=== PATIENT | female | born 1935 | race Caucasian/White ===

== ENCOUNTER 2018-07-14 13:55 | Inpatient (IN) | payer MEDICARE ==
[2018-07-14 14:41] LABS: ABSOLUTE EOSINOPHILS # (AUTO) 0.5 10^3/uL (0.0-0.6); ABSOLUTE LYMPHOCYTES (AUTO) 1.5 10^3/uL (0.5-4.7); ABSOLUTE MONOCYTES (AUTO) 0.6 10^3/uL (0.1-1.4); ABSOLUTE NEUT (AUTO) 7.8 10^3/uL (1.7-8.2); BASOPHILS % (AUTO) 0.4 % (0-2); EOSINOPHILS % (AUTO) 4.8 % (0-6); HEMATOCRIT 36.1 % (36.0-47.0); LYMPHOCYTES % (AUTO) 14.3 % (13-45); MEAN CORPUSCULAR HGB CONC 33.3 g/dL (32.0-36.0); MEAN CORPUSCULAR VOLUME 81 fl (80-97); MONOCYTES % (AUTO) 6.1 % (3-13); PLATELET COUNT 319 10^3/uL (150-450); RED BLOOD COUNT 4.46 10^6/uL (3.72-5.28); RED CELL DISTRIBUTION WIDTH 17.9 % (11.5-14.0); SEGMENTED NEUTROPHILS % (AUTO) 74.4 % (42-78); TOTAL CELLS COUNTED % (AUTO) 100 %; WHITE BLOOD COUNT 10.5 10^3/uL (4.0-10.5)
[2018-07-14 14:50] LABS: ALANINE AMINOTRANSFERASE 37 U/L (9-52); ALKALINE PHOSPHATASE 96 U/L (38-126); ASPARTATE AMINO TRANSFERASE 40 U/L (14-36); BILIRUBIN,DIRECT 0.2 mg/dL (0.0-0.4); BILIRUBIN,TOTAL 0.3 mg/dL (0.2-1.3); BLOOD UREA NITROGEN 7 mg/dL (7-20); CHLORIDE 92 mmol/L (98-107); GLUCOSE 117 mg/dL (75-110); SODIUM 139.7 mmol/L (137-145); TOTAL PROTEIN 6.2 g/dL (6.3-8.2)
[2018-07-14 14:57] LABS: ALCOHOL < 10 mg/dL (NONE DETECTED); ANION GAP 5 (5-19)
[2018-07-14 15:00] LABS: CALCIUM 13.4 mg/dL (8.4-10.2); POTASSIUM 2.1 mmol/L (3.6-5.0)
[2018-07-14 15:01] LABS: CARBON DIOXIDE 43 mmol/L (22-30)
[2018-07-14] MEDS ORDERED: NORMAL SALINE 1000 ML 1,000 ML IV ONE ×2 (15:31→19:50)
[2018-07-14 15:44] LABS: INTERNATIONAL RATION (INR) 0.95; PROTHROMBIN TIME 13.2 SEC (11.4-15.4)
[2018-07-14 15:45] LABS: PARTIAL THROMBOPLASTIN TIME 28.8 SEC (23.5-35.8)
[2018-07-14] MEDS ORDERED: MAGNESIUM SULFATE/D5W 1 GM/100 ML RTUPB IV ONE (15:55)
[2018-07-14 15:58] LABS: VENOUS BLOOD BASE EXCESS 18.8 mmol/L; VENOUS BLOOD HCO3 46.4 mmol/L (20-32); VENOUS BLOOD PH 7.45 (7.30-7.42)
[2018-07-14 16:00] LABS: VENOUS BLOOD PCO2 69.1 mmHg (35-63)
--- NOTE | 2018-07-14 17:21 | RADIOLOGY REPORT (SQ) ---
EXAM DESCRIPTION: CT HEAD WITHOUT COMPLETED DATE/TIME: 07/14/2018 5:06 pm REASON FOR STUDY: ams COMPARISON: None. TECHNIQUE: Axial images acquired through the brain without intravenous contrast. Images reviewed wi th bone, brain and subdural windows. Additional sagittal and coronal reconstructions were generated. Images stored on PACS. All CT scanners at this facility use dose modulation, iterative reconstruction, and/or weight based d osing when appropriate to reduce radiation dose to as low as reasonably achievable (ALARA). [facility]: Dose Right [facility]: CareDose [facility]: Dose Right [facility]: Teradose 4D [facility]: [place] S&T RADIATION DOSE: CT Rad equipment meets quality standard of care and radiation dose reduction techniq ues were employed. CTDIvol: 53.2 mGy. DLP: 964 mGy-cm.mGy. LIMITATIONS: None. FINDINGS: VENTRICLES: Prominent. CEREBRUM: No masses. No hemorrhage. No midline shift. Areas of low density in the white matter mos t likely due to chronic micro-vascular ischemic change. No evidence for acute infarction. CEREBELLUM: No masses. No hemorrhage. No alteration of density. No evidence for acute infarction. EXTRAAXIAL SPACES: Age-related involutional change. No fluid collections. No masses. ORBITS AND GLOBE: No intra- or extraconal masses. Normal contour of globe without masses. CALVARIUM: No fracture. PARANASAL SINUSES: Trace fluid left maxillary sinus. SOFT TISSUES: No mass or hematoma. OTHER: No other significant finding. IMPRESSION: CHRONIC CHANGES OF ATROPHY AND MICROVASCULAR ISCHEMIA. NO ACUTE PROCESS. EVIDENCE OF ACUTE STROKE: NO. TECHNICAL DOCUMENTATION: JOB ID: [id number] Quality ID # [id number]: Final reports with documentation of one or more dose reduction techniques (e.g., Au tomated exposure control, adjustment of the mA and/or kV according to patient size, use of iterative reconstruction technique) 2010 [employer]- All Rights Reserved Reading location - IP/workstation name: [email or web address]
--- NOTE | 2018-07-14 17:22 | RADIOLOGY REPORT (SQ) ---
EXAM DESCRIPTION: CT ABD/PELVIS WITH IV ONLY COMPLETED DATE/TIME: 07/14/2018 5:06 pm REASON FOR STUDY: pain COMPARISON: None. TECHNIQUE: CT scan of the abdomen and pelvis performed using helical scanning technique with dynamic intravenous contrast injection. No oral contrast. Images reviewed with lung, soft tissue, and bone windows. Reconstructed coronal and sagittal MPR images reviewed. Delayed images for evaluation of the urinary system also acquired. All images stored on PACS. All CT scanners at this facility use dose modulation, iterative reconstruction, and/or weight based d osing when appropriate to reduce radiation dose to as low as reasonably achievable (ALARA). [facility]: Dose Right [facility]: CareDose [facility]: Dose Right [facility]: Teradose 4D [facility]: [employer] CONTRAST TYPE AND DOSE: contrast/concentration: Isovue 350.00 mg/ml; Total Contrast Delivered: 79.0 ml; Total Saline Delivered: 38.0 ml RENAL FUNCTION: BUN 7 creatinine 0.6 RADIATION DOSE: CT Rad equipment meets quality standard of care and radiation dose reduction techniq ues were employed. CTDIvol: 9.6 - 14.4 mGy. DLP: 1266 mGy-cm.. LIMITATIONS: None. FINDINGS: LOWER CHEST: Mild left lower lobe bronchiectasis. LIVER: The liver is diffusely hypoattenuating. No masses. SPLEEN: Normal size. No focal lesions. PANCREAS: No masses. No significant calcifications. No adjacent inflammation or peripancreatic fluid collections. Pancreatic duct not dilated. GALLBLADDER: No identified stones by CT criteria. No inflammatory changes to suggest cholecystitis. ADRENAL GLANDS: No significant masses or asymmetry. RIGHT KIDNEY AND URETER: No solid masses. No significant calcifications. No hydronephrosis or hyd roureter. LEFT KIDNEY AND URETER: No solid masses. No significant calcifications. No hydronephrosis or hydr oureter. AORTA AND VESSELS: No aneurysm. No dissection. Renal arteries, SMA, celiac without stenosis. RETROPERITONEUM: No retroperitoneal adenopathy, hemorrhage or masses. BOWEL AND PERITONEAL CAVITY: Mild sigmoid diverticulosis. No acute inflammation. There is considera ble stool in the rectum. APPENDIX: Not identified. PELVIS: Urinary bladder is normal. There is a 4.5 cm right adnexal simple cyst. ABDOMINAL WALL: No masses. No hernias. BONES: Scoliosis. Degenerative disc changes. OTHER: No other significant finding. IMPRESSION: 1. Mild bronchiectasis in the left lower lobe. 2. Fatty infiltration of the liver. 3. Diverticulosis coli. 4. There is a 4.5 cm simple cyst in the right adnexa. Follow-up ultrasound is recommended. TECHNICAL DOCUMENTATION: JOB ID: [id number] Quality ID # [id number]: Final reports with documentation of one or more dose reduction techniques (e.g., Au tomated exposure control, adjustment of the mA and/or kV according to patient size, use of iterative reconstruction technique) 2010 [employer]- All Rights Reserved Reading location - IP/workstation name: [email or web address]
--- NOTE | 2018-07-14 17:22 | RADIOLOGY REPORT (SQ) ---
EXAM DESCRIPTION: CHEST SINGLE VIEW COMPLETED DATE/TIME: 07/14/2018 5:09 pm REASON FOR STUDY: ams COMPARISON: 09/12/2007 EXAM PARAMETERS: NUMBER OF VIEWS: One view. TECHNIQUE: Single frontal radiographic view of the chest acquired. RADIATION DOSE: NA LIMITATIONS: Positioning. FINDINGS: LUNGS AND PLEURA: No opacities, masses or pneumothorax. No pleural effusion. MEDIASTINUM AND HILAR STRUCTURES: Normal for technique. HEART AND VASCULAR STRUCTURES: Normal for technique. BONES: No acute findings. HARDWARE: None in the chest. OTHER: No other significant finding. IMPRESSION: NO ACUTE RADIOGRAPHIC FINDING IN THE CHEST. TECHNICAL DOCUMENTATION: JOB ID: [id number] [employer]- All Rights Reserved Reading location - IP/workstation name: [email or web address]
[2018-07-14 18:01] LABS: APPEARANCE,URINE CLOUDY; BILIRUBIN,URINE NEGATIVE (NEGATIVE); COLOR,URINE YELLOW; GLUCOSE, URINE NEGATIVE (NEGATIVE); KETONES,URINE NEGATIVE (NEGATIVE); LEUKOCYTE ESTERASE,URINE LARGE (NEGATIVE); NITRITE,URINE NEGATIVE (NEGATIVE); PROTEIN,URINE NEGATIVE (NEGATIVE); URINE SPECIFIC GRAVITY 1.043; UROBILINOGEN,URINE NEGATIVE mg/dL (<2.0)
[2018-07-14] MEDS ORDERED: CEFTRIAXONE 1 GM/D5W RTU 1 GM/50 ML RTUPB IV ONE (18:21)
[2018-07-14 18:28] LABS: URINE AMPHETAMINES SCREEN NEGATIVE; URINE BARBITURATES SCREEN NEGATIVE; URINE BENZODIAZEPINES SCREEN NEGATIVE; URINE COCAINE SCREEN NEGATIVE; URINE MARIJUANA (THC) SCREEN NEGATIVE; URINE METHADONE SCREEN NEGATIVE; URINE PHENCYCLIDINE SCREEN NEGATIVE
[2018-07-14] MEDS ORDERED: ACETAMINOPHEN 325 MG TABLET PO PRN (20:02)
[2018-07-14] MEDS ORDERED: MAG HYDROX/AL HYDROX/SIMETH SUSP 30 ML UDCUP PO PRN (20:02)
[2018-07-14] MEDS ORDERED: IPRATROPIUM/ALBUTEROL 0.5-2.5 MG/3 ML AMPUL NEB PRN (20:02)
--- NOTE | 2018-07-14 20:03 | ER Document Report ---
ED General - General Chief Complaint: Abdominal Pain Stated Complaint: ALTERED MENTAL STATUS Time Seen by Provider: 07/14/18 15:19 TRAVEL OUTSIDE OF THE [place] IN LAST 30 DAYS: No - HPI Patient complains to provider of: Abdominal pain altered mental status Notes: Upon entering patient examination patient is sitting by herself patient is monitoring the vital signs at this time. Patient upon palpating her belly states leave her alone otherwise patient does not answer any questions is not aware was going on her surroundings. According to the nursing staff patient was brought by EMS and family is at bedside. We are eventually able to contact family medical power of attorney at law stated the patient is a full code and then daughter the patient lives with daughter states intermittent L mental status is ongoing for the last week. States patient has history of bipolar schizophrenia is on aspirin and vitamin supplements. Denies any recent otherwise patient is alert and eat a soft diet Past Medical History - Social History Smoking Status: Unknown if Ever Smoked Family History: Reviewed & Not Pertinent Patient has suicidal ideation: No Patient has homicidal ideation: No Renal/ Medical History: Denies: Hx Peritoneal Dialysis Psychiatric Medical History: Reports: Hx Bipolar Disorder, Hx Schizophrenia Review of Systems - Review of Systems Notes: Altered mental status -: Yes ROS unobtainable due to patient's medical condition Physical Exam - Vital signs Vitals: Resp Pulse Ox 15 91 L 07/14/18 14:15 07/14/18 14:15 Interpretation: Normal - General General appearance: Appears well, Alert - HEENT Head: Normocephalic, Atraumatic Eyes: Normal Conjunctiva: Normal Pupils: PERRL - Respiratory Respiratory status: No respiratory distress Chest status: Nontender Breath sounds: Normal Chest palpation: Normal - Cardiovascular Rhythm: Regular Heart sounds: Normal auscultation Murmur: No - Abdominal Inspection: Normal Distension: No distension Bowel sounds: Normal Tenderness: Tender - Diffuse tenderness no guarding no rebound Organomegaly: No organomegaly - Back Back: Normal, Nontender - Extremities General upper extremity: Normal inspection, Nontender, Normal color, Normal ROM , Normal temperature General lower extremity: Normal inspection, Nontender, Normal color, Normal ROM , Normal temperature, Normal weight bearing. No: Panda's sign - Neurological Neuro grossly intact: Yes [place] Coma Scale Eye Opening: Spontaneous [place] Coma Scale Verbal: Confused Jose Coma Scale Motor: Localizes to Pain [place] Coma Scale Total: 13 Speech: Normal Motor strength normal: LUE, RUE, LLE, RLE Sensory: Normal - Psychological Associated symptoms: Confused - Skin Skin Temperature: Warm Skin Moisture: Dry Skin Color: Normal Course - Re-evaluation Re-evalutation: 07/14/18 21:42 Laboratory studies show a venous blood gas with hypercapnia however no signs of acidosis. Chemistry profile does show hypokalemia hypomagnesemia EKG does show any changes with this however is very difficult to obtain EKG as the patient continues to move. Patient urinalysis shows signs of urinary tract infection. Head CT chest x-ray and CT of abdomen pelvis did not show any other infectious etiology. Discussed with the hospital staff Dr. Kellogg will admit patient to telemetry for further evaluation and treatment - Vital Signs Vital signs: Temp Pulse Resp BP Pulse Ox 12 145/86 H 93 07/14/18 20:01 07/14/18 20:00 07/14/18 20:01 - Laboratory Result Diagrams: 07/14/18 14:20 07/14/18 14:20 Laboratory results interpreted by me: 07/14/18 07/14/18 07/14/18 14:20 14:20 14:20 RDW 17.9 H VBG pH VBG pCO2 VBG HCO3 Potassium 2.1 L* Chloride 92 L Carbon Dioxide 43 H* Glucose 117 H Lactic Acid 3.0 H Calcium 13.4 H* Magnesium 1.5 L AST 40 H Total Protein 6.2 L Albumin 3.0 L Urine Blood Ur Leukocyte Esterase 07/14/18 07/14/18 07/14/18 14:20 15:46 17:32 RDW VBG pH 7.45 H VBG pCO2 69.1 H* VBG HCO3 46.4 H Potassium Chloride Carbon Dioxide Glucose Lactic Acid Calcium Magnesium 1.4 L AST Total Protein Albumin Urine Blood SMALL H Ur Leukocyte Esterase LARGE H Discharge - Discharge Clinical Impression: Hypomagnesemia, Hypokalemia Altered mental state Qualifiers: Altered mental status type: unspecified Qualified Code(s): R41.82 - Altered mental status, unspecified UTI (urinary tract infection) Qualifiers: Urinary tract infection type: acute cystitis Hematuria presence: without hematuria Qualified Code(s): N30.00 - Acute cystitis without hematuria Condition: Good Disposition: ADMITTED INPATIENT Admitting Provider: Tristan Kellogg Unit Admitted: Telemetry
[2018-07-14] MEDS ORDERED: POTASSI CL 20 MEQ/D5-1/2NS 1L 1,000 ML IV PRN (20:15)
[2018-07-14] MEDS ORDERED: CEFTRIAXONE INJ 1000 MG VIAL ONE (20:34)
[2018-07-14] MEDS ORDERED: RISPERIDONE 0.25 MG TABLET PO SCH (21:00)
[2018-07-14] MEDS ORDERED: POTASSIUM CHLORIDE 20 MEQ/15 ML UDCUP PO ONE (22:15)
[2018-07-14] MEDS ORDERED: HEPARIN SOD (PORCINE) 5,000 UNIT/ML 1 ML SYRINGE SUBCUT ONE (22:15)
[2018-07-14] MEDS ORDERED: RISPERIDONE 0.25 MG TABLET PO ONE (23:00)
--- NOTE | 2018-07-14 23:06 | EKG REPORT ---
SEVERITY:- ABNORMAL ECG - PROBABLE SINUS RHYTHM, CAN NOT R/O A-FLUTTER/FIBRILLATION REC REPEAT EKG LEFT ANTERIOR FASCICULAR BLOCK PROBABLE LVH WITH SECONDARY REPOL ABNRM BORDERLINE PROLONGED QT INTERVAL : Confirmed by: Landon Long 14-Jul-2018 23:05:37
[2018-07-15] MEDS: POTASSI CL 20 MEQ/50 ML RIDER 20 MEQ/50 ML RTUPB IV SCH ×4 (00:19→08:55)
[2018-07-15] MEDS ORDERED: NA PHOS,M-B/NA PHOS,DI-BA (ADULT) 133 ML ENEMA PR ONE (03:15)
[2018-07-15] MEDS ORDERED: LACTULOSE SYRUP 20 GM/30 ML UDCUP PO ONE (03:15)
[2018-07-15 04:43] LABS: ABSOLUTE BASOPHILS # (AUTO) 0.1 10^3/uL (0.0-0.2); ABSOLUTE EOSINOPHILS # (AUTO) 0.6 10^3/uL (0.0-0.6); ABSOLUTE LYMPHOCYTES (AUTO) 1.5 10^3/uL (0.5-4.7); ABSOLUTE MONOCYTES (AUTO) 0.7 10^3/uL (0.1-1.4); BASOPHILS % (AUTO) 0.9 % (0-2); EOSINOPHILS % (AUTO) 4.8 % (0-6); HEMATOCRIT 33.5 % (36.0-47.0); HEMOGLOBIN 11.3 g/dL (12.0-15.5); LYMPHOCYTES % (AUTO) 12.9 % (13-45); MEAN CORPUSCULAR HEMOGLOBIN 27.3 pg (27.0-33.4); MEAN CORPUSCULAR HGB CONC 33.7 g/dL (32.0-36.0); MEAN CORPUSCULAR VOLUME 81 fl (80-97); PLATELET COUNT 292 10^3/uL (150-450); RED BLOOD COUNT 4.14 10^6/uL (3.72-5.28); SEGMENTED NEUTROPHILS % (AUTO) 75.4 % (42-78); TOTAL CELLS COUNTED % (AUTO) 100 %; WHITE BLOOD COUNT 11.9 10^3/uL (4.0-10.5)
[2018-07-15 05:11] LABS: ANION GAP 5 (5-19); BLOOD UREA NITROGEN 7 mg/dL (7-20); CARBON DIOXIDE 38 mmol/L (22-30); CHLORIDE 99 mmol/L (98-107); GLUCOSE 112 mg/dL (75-110); SODIUM 141.5 mmol/L (137-145)
[2018-07-15 05:24] LABS: CALCIUM 12.5 mg/dL (8.4-10.2); POTASSIUM 2.3 mmol/L (3.6-5.0)
[2018-07-15] MEDS: MAGNESIUM SULFATE/D5W 1 GM/100 ML RTUPB IV SCH ×2 (06:03→11:23)
[2018-07-15] MEDS: HEPARIN SOD (PORCINE) 5,000 UNIT/ML 1 ML SYRINGE SUBCUT SCH ×3 (06:04→22:24)
[2018-07-15] MEDS ORDERED: FUROSEMIDE INJ/PF 40 MG/4 ML SDV IV ONE (07:05)
--- NOTE | 2018-07-15 07:22 | PDOC H&P ---
History of Present Illness Admission Date/PCP: 07/14/18 20:24 WILBERT JUNIOR MD Patient complains of: Altered mental status History of Present Illness: DEMI MANNING is a 82 year old female with a past medical history of schizophrenia whose history is otherwise to obtain as she is a poor historian and family is unavailable. She is brought to the emergency room via EMS for altered mental status worsening over the last week. She is awake and alert but disoriented and intermittently tracking, verbal but incomprehensible. Her workup reveals profound hypokalemia, hypercalcemia and hypomagnesemia. CT head , chest x-ray and CT abdomen is unremarkable with exception to fecal impaction. She is referred to the hospitalist for admission Past Medical History Psychiatric Medical History: Reports: Bipolar Disorder, Schizoaffective Disorder Denies: Depression Social History Information Source: Patient, [facility] Lives with: Family Smoking Status: Unknown if Ever Smoked Frequency of Alcohol Use: None Hx Recreational Drug Use: No Drugs: None Hx Prescription Drug Abuse: No - Advance Directive Resuscitation Status: Full Code Family History Family History: Other - Unobtainable Parental Family History Reviewed: No - Unobtainable Children Family History Reviewed: No - Unobtainable Sibling(s) Family History Reviewed.: No - Unobtainable Review of Systems ROS unobtainable: Due to mental status - Encephalopathy Physical Exam Vital Signs: Temp Pulse Resp BP Pulse Ox 97.7 F 98 16 141/61 H 91 L 07/15/18 03:26 07/15/18 03:38 07/15/18 03:26 07/15/18 03:26 07/15/18 03:26 Intake & Output 07/13/18 07/14/18 07/15/18 11:59 11:59 11:59 Intake Total 150 Balance 150 Weight 63.7 kg General appearance: PRESENT: disheveled, mild distress. ABSENT: cooperative, hard of hearing Head exam: PRESENT: atraumatic, normocephalic Eye exam: PRESENT: conjunctiva pink, EOMI, PERRLA. ABSENT: scleral icterus Ear exam: PRESENT: normal external ear exam Mouth exam: PRESENT: moist, tongue midline Neck exam: ABSENT: carotid bruit, JVD, lymphadenopathy, thyromegaly Respiratory exam: PRESENT: clear to auscultation nagi. ABSENT: rales, rhonchi, wheezes Cardiovascular exam: PRESENT: RRR. ABSENT: diastolic murmur, rubs, systolic murmur Pulses: PRESENT: normal dorsalis pedis pul Vascular exam: PRESENT: normal capillary refill GI/Abdominal exam: PRESENT: distended, hypoactive bowel sounds, soft, tenderness. ABSENT: firm, guarding, hernia Rectal exam: PRESENT: deferred Extremities exam: PRESENT: full ROM. ABSENT: calf tenderness, clubbing, pedal edema Neurological exam: PRESENT: alert, altered, awake, oriented to person, CN II- XII grossly intact Psychiatric exam: PRESENT: appropriate affect, normal mood. ABSENT: homicidal ideation, suicidal ideation Skin exam: PRESENT: dry, intact, warm. ABSENT: cyanosis, rash Results Laboratory Results: 07/15/18 03:44 07/15/18 03:44 07/15/18 07/15/18 07/15/18 03:44 03:44 03:44 WBC 11.9 H RBC 4.14 Hgb 11.3 L Hct 33.5 L MCV 81 MCH 27.3 MCHC 33.7 RDW 18.0 H Plt Count 292 Seg Neutrophils % 75.4 Lymphocytes % 12.9 L Monocytes % 6.0 Eosinophils % 4.8 Basophils % 0.9 Absolute Neutrophils 9.0 H Absolute Lymphocytes 1.5 Absolute Monocytes 0.7 Absolute Eosinophils 0.6 Absolute Basophils 0.1 Sodium 141.5 Potassium 2.3 L* Chloride 99 Carbon Dioxide 38 H Anion Gap 5 BUN 7 Creatinine 0.53 Est GFR ( Amer) > 60 Est GFR (Non-Af Amer) > 60 Glucose 112 H Calcium 12.5 H* Magnesium 1.8 Impressions: Abdomen/Pelvis CT 07/14/18 15:30 IMPRESSION: 1. Mild bronchiectasis in the left lower lobe. 2. Fatty infiltration of the liver. 3. Diverticulosis coli. 4. There is a 4.5 cm simple cyst in the right adnexa. Follow-up ultrasound is recommended. Chest X-Ray 07/14/18 15:30 IMPRESSION: NO ACUTE RADIOGRAPHIC FINDING IN THE CHEST. Head CT 07/14/18 15:30 IMPRESSION: CHRONIC CHANGES OF ATROPHY AND MICROVASCULAR ISCHEMIA. NO ACUTE PROCESS. EVIDENCE OF ACUTE STROKE: NO. Assessment & Plan - Diagnosis (1) Hypercalcemia Is this a current diagnosis for this admission?: Yes Plan: Initial hydration, potassium repletion followed by Lasix, follow-up chemistry (2) Encephalopathy Is this a current diagnosis for this admission?: Yes Plan: Multifactorial secondary to hypercalcemia and schizophrenia. Supportive measures, correct #1 (3) Hypokalemia Is this a current diagnosis for this admission?: Yes Plan: Repletion and reevaluation of chemistry (4) Hypomagnesemia Is this a current diagnosis for this admission?: Yes Plan: Repletion and reevaluation of magnesium - Time Time Spent: 30 to 50 Minutes - Inpatient Certification Medical Necessity: Need Close Monitoring Due to Risk of Patient Decompensation
[2018-07-15] MEDS: IPRATROPIUM/ALBUTEROL 0.5-2.5 MG/3 ML AMPUL NEB SCH ×2 (08:10→20:31)
[2018-07-15] MEDS: NORMAL SALINE 1000 ML 1,000 ML IV PRN ×2 (08:45→14:25)
[2018-07-15] MEDS: DOCUSATE SODIUM 100 MG CAPSULE PO SCH ×2 (09:51→18:05)
[2018-07-15] MEDS: RISPERIDONE 0.25 MG TABLET PO SCH ×2 (10:56→17:26)
[2018-07-15] MEDS ORDERED: MAGNESIUM SULFATE/D5W 1 GM/100 ML RTUPB IV ONE (11:21)
[2018-07-15] MEDS ORDERED: (PENDING PHARMACY ID) (Escitalopram Oxalate [Lexapro] 5 MG) PO SCH (12:00)
[2018-07-15] MEDS ORDERED: (PENDING PHARMACY ID) (Cholecalciferol (Vitamin D3) [Vitamin D3] 2,000 UNIT) PO SCH (12:00)
[2018-07-15] MEDS: ESCITALOPRAM OXALATE 10 MG TABLET PO SCH (13:22)
[2018-07-15] MEDS: CHOLECALCIFEROL (D3) 1,000 UNIT TABLET PO SCH ×2 (13:22→17:26)
[2018-07-15 16:36] LABS: BLOOD UREA NITROGEN 6 mg/dL (7-20); CALCIUM 11.1 mg/dL (8.4-10.2); GLUCOSE 103 mg/dL (75-110)
[2018-07-15 16:41] LABS: CARBON DIOXIDE 36 mmol/L (22-30); CHLORIDE 103 mmol/L (98-107); SODIUM 142.9 mmol/L (137-145)
[2018-07-15 16:45] LABS: ANION GAP 4 (5-19); POTASSIUM 2.7 mmol/L (3.6-5.0)
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
[2018-07-15] MEDS: POTASSIUM CHLORIDE 20 MEQ/50 ML RTU IV SCH ×3 (18:05→22:24)
[2018-07-16] MEDS: HEPARIN SOD (PORCINE) 5,000 UNIT/ML 1 ML SYRINGE SUBCUT SCH (05:24)
[2018-07-16 06:05] LABS: ANION GAP 6 (5-19); BLOOD UREA NITROGEN 6 mg/dL (7-20); CALCIUM 10.6 mg/dL (8.4-10.2); CARBON DIOXIDE 29 mmol/L (22-30); CHLORIDE 108 mmol/L (98-107); GLUCOSE 95 mg/dL (75-110); POTASSIUM 3.2 mmol/L (3.6-5.0); SODIUM 143.4 mmol/L (137-145)
[2018-07-16] MEDS: IPRATROPIUM/ALBUTEROL 0.5-2.5 MG/3 ML AMPUL NEB SCH (08:04)
[2018-07-16] MEDS ORDERED: POTASSI CL 20 MEQ/D5NS 1L 20 MEQ/1,000 ML RTUINJ IV PRN (08:52)
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
[2018-07-16 09:29] VITALS: BP 166/84
[2018-07-16 09:34] LABS: CHOLESTEROL 154.13 mg/dL (0-200); TRIGLYCERIDES 156 mg/dL (<150)
[2018-07-16 09:45] LABS: DIRECT LDL 82 mg/dL (<100)
[2018-07-16] MEDS: CHOLECALCIFEROL (D3) 1,000 UNIT TABLET PO SCH ×2 (09:45→11:40)
[2018-07-16 09:46] LABS: VLDL CHOLESTEROL 31.2 mg/dL (10-31)
[2018-07-16] MEDS: DOCUSATE SODIUM 100 MG CAPSULE PO SCH (09:51)
[2018-07-16] MEDS: RISPERIDONE 0.25 MG TABLET PO SCH (09:54)
[2018-07-16] MEDS ORDERED: RISPERIDONE 0.25 MG TABLET PO SCH (10:00)
[2018-07-16] MEDS ORDERED: ASPIRIN 81 MG TABLET, ENT COATED PO SCH (10:00)
[2018-07-16] MEDS ORDERED: CYANOCOBALAMIN (VITAMIN B-12) 1,000 MCG TABLET PO SCH (10:00)
[2018-07-16] MEDS: ESCITALOPRAM OXALATE 10 MG TABLET PO SCH (11:41)
[2018-07-16] MEDS ORDERED: ATORVASTATIN CALCIUM 20 MG TABLET PO SCH (22:00)
== END 2018-07-16 12:51 | disposition short-term general hospital (02) | DRG 640 ==
LOC: ER 13:55 → EH 20:24 → 3N 07-15 02:55 → 3W 07-15 18:28
PROVIDERS: ADMIT Internal Medicine; ATTEND Internal Medicine
DX: E87.6 Hypokalemia (principal); G93.41 Metabolic encephalopathy; N39.0 Urinary tract infection, site not specified; E83.42 Hypomagnesemia; F31.9 Bipolar disorder, unspecified; F20.9 Schizophrenia, unspecified; Z79.82 Long term (current) use of aspirin; E83.51 Hypocalcemia; Z75.1 Person awaiting admission to adequate facility elsewhere; K56.41 Fecal impaction
CPT/HCPCS: 36415; 51701; 70450; 71045; 74177; 80048; 80053; 80061; 80307; 81001; 82803; 82962; 83036; 83605; 83690; 83735; 85025; 85610; 85730; 87040; 87086; 93005; 93010; 94640; 94660; 96365; 99285; J0696; J1644; J3475; J3480; J3490; J7030; J7620

== ENCOUNTER 2020-11-02 16:05 | Inpatient (IN) | payer MEDICARE, MEDICAID ==
--- NOTE | 2020-11-02 16:36 | ER Document Report ---
ED General - General Stated Complaint: ALTERED MENTAL STATUS Time Seen by Provider: 11/02/20 16:35 Primary Care Provider: JOSE PALOMINO MD [Primary Care Provider] - Follow up as needed TRAVEL OUTSIDE OF THE [place] IN LAST 30 DAYS: No - HPI Notes: 84-year-old female arrives from [facility] for altered level of consciousness and making noises per EMS report. Patient does not participate in exam. Reviewed packet of information that accompanied the patient [facility] the [facility]. Patient has a history of chronic encephalopathy, bipolar, schizophrenia, hypothyroidism. Patient had Covid infection the beginning of October, since then she has been more confused and lethargic. She had a recent pneumonia and was started on Augmentin. Due to concerns for dehydration, she received 4 L of normal saline. This is from a progress note dated 10/23/2020. Patient had labs done 11/01: WBC 10.6 Hemoglobin 8.8 Platelet 208 Sodium 170 verified by repeat analysis Potassium 2.8 verified repeat analysis Chloride 125 verified by repeat analysis BUN 51 Creatinine 0.9 Chest x-ray from 09/30 read as no infiltrate, effusion, or acute findings identified Patient is a full code - Related Data Allergies/Adverse Reactions: bananas Allergy (Uncoded 07/15/18 18:58) eggs Allergy (Uncoded 07/15/18 10:56) Past Medical History - General Information source: Outside Facility Records - Social History Smoking Status: Unknown if Ever Smoked Family History: Other - Unobtainable Renal/ Medical History: Denies: Hx Peritoneal Dialysis Psychiatric Medical History: Reports: Hx Bipolar Disorder, Hx Schizophrenia Denies: Hx Depression Review of Systems - Review of Systems -: Yes ROS unobtainable due to patient's medical condition Physical Exam - Vital signs Vitals: Temp 98.0 F 11/02/20 16:05 - General In distress: None - HEENT Head: Normocephalic, Atraumatic Pupils: PERRL Mucous membranes: Dry - Respiratory Breath sounds: Normal - Cardiovascular Rhythm: Irregularly irregular Pulses: Normal: Radial, Dorsalis pedis Normal capillary refill: Yes - Abdominal Inspection: Obese Tenderness: Nontender - Extremities General upper extremity: Edema General lower extremity: Edema - Neurological Notes: Patient mostly mumbles incoherently, she however is actually able to say "get the fuck off of me". She does not participate in exam. She is noted to spontaneously move her extremities, face is grossly symmetric. - Psychological Associated symptoms: Other - Unable to assess - Skin Skin Temperature: Warm Course - Re-evaluation Re-evalutation: 84-year-old female [facility] with concerns for altered mental status and making noises. On exam patient mostly mumbles incoherently, she moves all extremities, she is actually able to say a few discernible phrases. There is a packet of information that came with her which was reviewed . Recent +COVID 10/11. Notably on labs collected yesterday 11/01, she has a few notable electrolyte abnormalities including hypernatremia 170, hyperchloremia and hypokalemia and hypocalcemia. I suspect that the hypernatremia/hyperchloremia are due to the 4L of normal saline she has recently received. Will recheck these labs. Patient has evidence of third spacing, however anticipating that her potassium will be low, will hold on Lasix at this time. Labs have resulted showing sodium 159, potassium 2.0, glucose 47, calcium 6.6. Normal mag/phos. In terms of management have ordered 1 L D51/2NS40K which will start to address sodium/potassium, have also ordered additional IV boluses of potassium. D50 and calcium gluconate have been ordered as well. 11/02/20 20:34 Hyperglycemia has corrected as she is not hyperglycemic. About half of the D5 half 40 K has infused, will recheck a BMP to see if electrolytes are starting to correct. I went in to check on patient, she grumbles mostly incoherently but does say "you all are hurting me" 11/02/20 20:46 Attempted admission to medical floor, have asked for ICU consult 11/02/20 21:01 Discussed with ICU team, best plan right now is to aggressively replete electrolytes in the emergency department as planned, and then attempt readmission to the floor, do not believe the patient requires ICU care at this time 11/02/20 22:06 Improvement in sodium and potassium. Calcium still remains low, however believe that patient had not actually received this at time of lab check 11/03/20 02:23 Sodium has further improved, have held further IV fluids. Potassium has now 3.2 and calcium has improved as well. Patient has been accepted to the hospitalist service. - Vital Signs Vital signs: Temp Pulse Resp BP Pulse Ox 97.5 F 67 19 103/48 L 96 11/03/20 01:00 11/03/20 01:30 11/03/20 00:01 11/03/20 01:30 11/03/20 01:30 - Laboratory Results Result Diagrams: 11/02/20 17:45 11/03/20 01:07 Laboratory Results Interpreted: 11/02/20 11/02/20 11/02/20 17:45 17:45 17:45 RBC 2.72 L Hgb 7.4 L Hct 22.6 L RDW 19.2 H Plt Count 142 L Lymph % (Auto) 10.2 L Seg Neutrophils % 80.0 H Sodium 159.0 H Potassium 2.0 L* Chloride 127 H Anion Gap BUN 45 H Est GFR (MDRD) Non-Af 57 L Glucose 47 L POC Glucose Serum Osmolality 339 H Calcium 6.6 L* Urine Protein Urine Ketones Ur Leukocyte Esterase SARS-CoV-2 Rap RNA(RT-PCR) 11/02/20 11/02/20 11/02/20 18:00 20:21 20:22 RBC Hgb Hct RDW Plt Count Lymph % (Auto) Seg Neutrophils % Sodium Potassium Chloride Anion Gap BUN Est GFR (MDRD) Non-Af Glucose POC Glucose 396 H Serum Osmolality Calcium Urine Protein 30 H Urine Ketones TRACE H Ur Leukocyte Esterase TRACE H SARS-CoV-2 Rap RNA(RT-PCR) POSITIVE H 11/02/20 11/03/20 20:57 01:07 RBC Hgb Hct RDW Plt Count Lymph % (Auto) Seg Neutrophils % Sodium 153.9 H 155.4 H Potassium 2.7 L* 3.3 L Chloride 123 H 125 H Anion Gap 1 L BUN 45 H 43 H Est GFR (MDRD) Non-Af 53 L 57 L Glucose 483 H* 335 H POC Glucose Serum Osmolality Calcium 6.6 L* 7.5 L Urine Protein Urine Ketones Ur Leukocyte Esterase SARS-CoV-2 Rap RNA(RT-PCR) Critical Laboratory Results Reviewed: Yes Attending or Supervising Physician who Reviewed Labs: MONAE GAMA - Radiology Results Critical Radiology Results Reviewed: No Critical Results - EKG Interpretation by Me Additional EKG results interpreted by me: EKG is interpreted by me. Atrial fibrillation, rate approximately in the 80s. QTc within normal limits. No marked QRS widening. No ST segment elevation. Nonspecific ST changes. Repeat EKG interpreted by me. Atrial fibrillation, rate approximately 100. EKG essentially unchanged. No STEMI. Discharge - Discharge Clinical Impression: Hypernatremia, Hypokalemia, Hypocalcemia, Encephalopathy chronic Disposition: ADMITTED INPATIENT Admitting Provider: [facility] Unit Admitted: IMCU Referrals: JOSE PALOMINO MD [Primary Care Provider] - Follow up as needed
--- NOTE | 2020-11-02 17:15 | RADIOLOGY REPORT (SQ) ---
EXAM DESCRIPTION: CT HEAD WITHOUT IMAGES COMPLETED DATE/TIME: 11/02/2020 1:42 pm REASON FOR STUDY: alerted mental status/ STROKE ALERT COMPARISON: 07/14/2018 TECHNIQUE: Axial images acquired through the brain without intravenous contrast. Images reviewed wi th bone, brain and subdural windows. Additional sagittal and coronal reconstructions were generated. Images stored on PACS. All CT scanners at this facility use dose modulation, iterative reconstruction, and/or weight based d osing when appropriate to reduce radiation dose to as low as reasonably achievable (ALARA). [facility]: Dose Right [facility]: CareDose [facility]: Dose Right [facility]: Teradose 4D [facility]: Smart Uniplaces RADIATION DOSE: CT Rad equipment meets quality standard of care and radiation dose reduction techniq ues were employed. CTDIvol: 53.2 mGy. DLP: 964 mGy-cm.mGy. LIMITATIONS: None. FINDINGS: VENTRICLES: Prominent. CEREBRUM: No masses. No hemorrhage. No midline shift. Areas of low density in the white matter mos t likely due to chronic micro-vascular ischemic change. No evidence for acute infarction. CEREBELLUM: No masses. No hemorrhage. No alteration of density. No evidence for acute infarction. EXTRAAXIAL SPACES: Age-related involutional change. No fluid collections. No masses. ORBITS AND GLOBE: No intra- or extraconal masses. Normal contour of globe without masses. CALVARIUM: No fracture. 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 PARANASAL SINUSES: No fluid or mucosal thickening. SOFT TISSUES: No mass or hematoma. OTHER: No other significant finding. IMPRESSION: Diffuse atrophy and mild chronic small vessel ischemic changes. No acute intracranial a bnormality on noncontrast CT. EVIDENCE OF ACUTE STROKE: NO. COMMENT: This report was called to Dr. Phoenix at14:06 [place] time on 11/02/2020. TECHNICAL DOCUMENTATION: JOB ID: [id number] Quality ID # [id number]: Final reports with documentation of one or more dose reduction techniques (e.g., Au tomated exposure control, adjustment of the mA and/or kV according to patient size, use of iterative reconstruction technique) 2010 [email or web address]- All Rights Reserved Reading location - IP/workstation name: [email or web address]
--- NOTE | 2020-11-02 17:27 | RADIOLOGY REPORT (SQ) ---
EXAM DESCRIPTION: CHEST SINGLE VIEW IMAGES COMPLETED DATE/TIME: 11/02/2020 1:40 pm REASON FOR STUDY: altered mental status COMPARISON: 07/14/2018 EXAM PARAMETERS: NUMBER OF VIEWS: One view. TECHNIQUE: Single frontal radiographic view of the chest acquired. RADIATION DOSE: NA LIMITATIONS: External leads partially obscure underlying structures. FINDINGS: LUNGS AND PLEURA: New hazy opacities in the left lung probably due to layering pleural eff usion and adjacent opacities in the left upper lobe and in the left lung base. No pneumothorax ident ified. Right lung appears clear. MEDIASTINUM AND HILAR STRUCTURES: No masses. Contour normal. HEART AND VASCULAR STRUCTURES: Heart normal in size. Normal vasculature. BONES: No acute findings. HARDWARE: None in the chest. OTHER: No other significant finding. IMPRESSION: New left lung opacities and pleural effusion which could be due to infection. Asymmetri c pulmonary edema is possible. TECHNICAL DOCUMENTATION: JOB ID: [id number] 2010 [email or web address]- All Rights Reserved Reading location - IP/workstation name: [email or web address]
[2020-11-02 18:06] LABS: ABSOLUTE BASOPHILS # (AUTO) 0.1 10^3/uL (0.0-0.2); ABSOLUTE EOSINOPHILS # (AUTO) 0.2 10^3/uL (0.0-0.6); ABSOLUTE LYMPHOCYTES (AUTO) 0.9 10^3/uL (0.5-4.7); ABSOLUTE MONOCYTES (AUTO) 0.5 10^3/uL (0.1-1.4); ABSOLUTE NEUT (AUTO) 6.7 10^3/uL (1.7-8.2); BASOPHILS % (AUTO) 0.8 % (0-2); EOSINOPHILS % (AUTO) 2.9 % (0-6); HEMATOCRIT 22.6 % (36.0-47.0); LYMPHOCYTES % (AUTO) 10.2 % (13-45); MEAN CORPUSCULAR HEMOGLOBIN 27.3 pg (27.0-33.4); MEAN CORPUSCULAR VOLUME 83 fl (80-97); MONOCYTES % (AUTO) 6.1 % (3-13); PLATELET COUNT 142 10^3/uL (150-450); RED BLOOD COUNT 2.72 10^6/uL (3.72-5.28); RED CELL DISTRIBUTION WIDTH 19.2 % (11.5-14.0); TOTAL CELLS COUNTED % (AUTO) 100 %; WHITE BLOOD COUNT 8.4 10^3/uL (4.0-10.5)
[2020-11-02 18:09] LABS: HEMOGLOBIN 7.4 g/dL (12.0-15.5)
[2020-11-02 18:15] LABS: ANION GAP 6 (5-19); BLOOD UREA NITROGEN 45 mg/dL (7-20); CARBON DIOXIDE 26 mmol/L (22-30); CHLORIDE 127 mmol/L (98-107); PHOSPHORUS 2.9 mg/dL (2.5-4.5)
[2020-11-02 18:22] LABS: CALCIUM 6.6 mg/dL (8.4-10.2)
[2020-11-02] MEDS ORDERED: POTASSI CL 40 MEQ/D5-1/2NS 1L 40 MEQ/1,000 ML RTUINJ IV PRN (18:26)
[2020-11-02 18:28] LABS: GLUCOSE 47 mg/dL (75-110)
[2020-11-02] MEDS ORDERED: CALCIUM GLUCONATE 1000 MG/10 ML INJ IV ONE ×3 (18:28→22:03)
[2020-11-02 18:34] LABS: APPEARANCE,URINE SLIGHTLY-CLOUDY; BILIRUBIN,URINE NEGATIVE (NEGATIVE); COLOR,URINE YELLOW; GLUCOSE, URINE NEGATIVE (NEGATIVE); KETONES,URINE TRACE mg/dL (NEGATIVE); LEUKOCYTE ESTERASE,URINE TRACE (NEGATIVE); NITRITE,URINE NEGATIVE (NEGATIVE); PROTEIN,URINE 30 mg/dL (NEGATIVE); URINE SPECIFIC GRAVITY 1.018; UROBILINOGEN,URINE NEGATIVE mg/dL (<2.0)
[2020-11-02 18:39] LABS: URINE CREATININE 59.1 mg/dL (15-278)
[2020-11-02] MEDS ORDERED: DEXTROSE 50%-WATER 25 GM/50 ML DISP.SYRIN IV ONE (18:45)
--- NOTE | 2020-11-02 21:05 | EKG REPORT ---
SEVERITY:- ABNORMAL ECG - SINUS TACHYCARDIA SUPRAVENTRICULAR BIGEMINY LEFT AXIS DEVIATION NONSPECIFIC T ABNORMALITIES, LATERAL LEADS : Confirmed by: Miguelangel Morales MD 02-Nov-2020 21:05:11
[2020-11-02] MEDS: POTASSI CL 20 MEQ/50 ML RIDER 20 MEQ/50 ML RTUPB IV SCH ×2 (21:23→23:24)
[2020-11-02 21:24] LABS: ANION GAP 6 (5-19)
[2020-11-02 21:40] LABS: BLOOD UREA NITROGEN 45 mg/dL (7-20); CARBON DIOXIDE 25 mmol/L (22-30); CHLORIDE 123 mmol/L (98-107)
[2020-11-02 21:45] LABS: CALCIUM 6.6 mg/dL (8.4-10.2)
[2020-11-02 21:46] LABS: GLUCOSE 483 mg/dL (75-110); POTASSIUM 2.7 mmol/L (3.6-5.0)
[2020-11-03 01:31] LABS: BLOOD UREA NITROGEN 43 mg/dL (7-20); CALCIUM 7.5 mg/dL (8.4-10.2); CHLORIDE 125 mmol/L (98-107); GLUCOSE 335 mg/dL (75-110); POTASSIUM 3.3 mmol/L (3.6-5.0)
[2020-11-03 01:37] LABS: CARBON DIOXIDE 29 mmol/L (22-30)
[2020-11-03 01:38] LABS: ANION GAP 1 (5-19)
[2020-11-03] MEDS ORDERED: DEXTROSE 40% GEL 15 GM TUBE PO PRN ×2 (03:03)
[2020-11-03] MEDS ORDERED: DEXTROSE 50%-WATER 25 GM/50 ML DISP.SYRIN IV PRN ×2 (03:03)
[2020-11-03] MEDS ORDERED: GLUCAGON,HUMAN RECOMB 1 MG INJ SUBCUT PRN (03:03)
[2020-11-03] MEDS ORDERED: ACETAMINOPHEN 650 MG SUPP.RECT PR PRN (03:23)
[2020-11-03] MEDS ORDERED: 1/2 NORMAL SALINE 1,000 ML IV PRN (03:23)
--- NOTE | 2020-11-03 03:50 | PDOC H&P ---
History of Present Illness Admission Date/PCP: 11/03/20 02:27 JOSE PALOMINO MD Patient complains of: Altered mental status History of Present Illness: DEMI MANNING is a 84 year old female with a history of schizophrenia is brought in from [facility] with altered mental status. Patient is altered and history is mainly from ER signout. Per ER physician report at [facility] patient was found to be dehydrated and was given 4 L of normal saline on the day of presentation and following that here sodium level was found to be 170. On arrival to the ED patient was altered, hypotensive, and had multiple electrolyte derangements including a sodium level of 159, potassium of 2.0, glucose of 47. EKG showed sinus rhythm with multiple SVE's. Chest x-ray showed no acute intracranial abnormality. Due to severe life-threatening electrolyte abnormalit y with metabolic encephalopathy initially potential ICU admission was recommended. Patient was continued to be hydrated in the ED, potassium was repleted and hypoglycemia was corrected with improvement in her blood pressure. Corrected sodium level remained around 159. Past Medical History Psychiatric Medical History: Reports: Bipolar Disorder, Schizoaffective Disorder Denies: Depression Social History Lives with: Retirement Smoking Status: Unknown if Ever Smoked Electronic Cigarette use?: No Frequency of Alcohol Use: None Hx Recreational Drug Use: No Drugs: None Hx Prescription Drug Abuse: No - Advance Directive Resuscitation Status: Full Code Family History Family History: Other - Unobtainable Parental Family History Reviewed: No - Unobtainable due to altered mental status Children Family History Reviewed: No Sibling(s) Family History Reviewed.: No Medication/Allergy Home Medications: Aspirin [Ecotrin 81 mg EC Tablet] 81 mg PO DAILY 07/15/18 Cholecalciferol (Vitamin D3) [Vitamin D3] 2,000 unit PO MEALS 07/15/18 Cyanocobalamin (Vitamin B-12) [Vitamin B-12 1000 mcg Tablet] 1,000 mcg PO DAILY 07/15/18 Escitalopram Oxalate [Lexapro] 5 mg PO NOON 07/15/18 Risperidone [Risperdal 0.25 mg Tablet] 0.25 mg PO Q12 07/15/18 Allergies/Adverse Reactions: bananas Allergy (Uncoded 07/15/18 18:58) eggs Allergy (Uncoded 07/15/18 10:56) Review of Systems ROS unobtainable: Due to mental status Physical Exam Vital Signs: Temp Pulse Resp BP Pulse Ox 97.5 F 67 19 103/48 L 96 11/03/20 01:00 11/03/20 01:30 11/03/20 00:01 11/03/20 01:30 11/03/20 01:30 Intake & Output 11/01/20 11/02/20 11/03/20 06:59 06:59 06:59 Intake Total 1100 Balance 1100 Weight 67.585 kg Additional comments: GENERAL APPEARANCE: Patient is altered, unable to follow command, not in acute distress HEENT: Normocephalic and atraumatic. No scleral icterus. Dry oral mucosa NECK: Supple. No lymphadenopathy or tenderness. No JVD CHEST: Symmetric. Nontender to palpation. LUNGS: Clear with good air entry bilaterally. No wheezing or crackles HEART: Regular rate and rhythm with normal S1 and S2. No murmurs, gallops, or rubs. ABDOMEN: soft, active bowel sounds, no direct or rebound tenderness. No organomegaly detected. EXTREMITIES: No cyanosis, clubbing, or edema. MUSCULOSKELETAL: Has pressure ulcer on the left foot area, also has joint deformities of bilateral ankle points PSYCHIATRIC: Unable to assess due to altered mental status SKIN: Warm, dry, and well perfused. No lesions or rashes are noted. NEUROLOGIC: Full neurologic exam was difficult to do due to patient's altered mental status. Patient withdraws from noxious stimuli in all 3 extremities, no facial deviation noted. Has no neck stiffness. Results Laboratory Results: 11/02/20 17:45 11/03/20 01:07 11/02/20 11/02/20 11/02/20 17:45 17:45 17:45 WBC 8.4 RBC 2.72 L Hgb 7.4 L Hct 22.6 L MCV 83 MCH 27.3 MCHC 33.0 RDW 19.2 H Plt Count 142 L Seg Neutrophils % 80.0 H Sodium 159.0 H Potassium 2.0 L* Chloride 127 H Carbon Dioxide 26 Anion Gap 6 BUN 45 H Creatinine 0.94 Est GFR ( Amer) > 60 Glucose 47 L Serum Osmolality 339 H Calcium 6.6 L* Phosphorus 2.9 Magnesium 2.0 Urine Color Urine Appearance Urine pH Ur Specific [place] Urine Protein Urine Glucose (UA) Urine Ketones Urine Blood Urine Nitrite Ur Leukocyte Esterase Urine WBC (Auto) Urine RBC (Auto) Urine Osmolality 11/02/20 11/02/20 11/02/20 18:00 18:00 20:57 WBC RBC Hgb Hct MCV MCH MCHC RDW Plt Count Seg Neutrophils % Sodium 153.9 H Potassium 2.7 L* Chloride 123 H Carbon Dioxide 25 Anion Gap 6 BUN 45 H Creatinine 1.00 Est GFR ( Amer) > 60 Glucose 483 H* Serum Osmolality Calcium 6.6 L* Phosphorus Magnesium Urine Color YELLOW Urine Appearance SLIGHTLY-CLOUDY Urine pH 5.0 Ur Specific [place] 1.018 Urine Protein 30 H Urine Glucose (UA) NEGATIVE Urine Ketones TRACE H Urine Blood NEGATIVE Urine Nitrite NEGATIVE Ur Leukocyte Esterase TRACE H Urine WBC (Auto) 28 Urine RBC (Auto) 3 Urine Osmolality 603 11/03/20 01:07 WBC RBC Hgb Hct MCV MCH MCHC RDW Plt Count Seg Neutrophils % Sodium 155.4 H Potassium 3.3 L Chloride 125 H Carbon Dioxide 29 Anion Gap 1 L BUN 43 H Creatinine 0.93 Est GFR ( Amer) > 60 Glucose 335 H Serum Osmolality Calcium 7.5 L Phosphorus Magnesium Urine Color Urine Appearance Urine pH Ur Specific [place] Urine Protein Urine Glucose (UA) Urine Ketones Urine Blood Urine Nitrite Ur Leukocyte Esterase Urine WBC (Auto) Urine RBC (Auto) Urine Osmolality Impressions: Chest X-Ray 11/02/20 00:00 IMPRESSION: New left lung opacities and pleural effusion which could be due to infection. Asymmetric pulmonary edema is possible. Head CT 11/02/20 00:00 IMPRESSION: Diffuse atrophy and mild chronic small vessel ischemic changes. No acute intracranial abnormality on noncontrast CT. EVIDENCE OF ACUTE STROKE: NO. Assessment and Plan - Diagnosis (1) Acute metabolic encephalopathy Is this a current diagnosis for this admission?: Yes Plan: Patient presents with altered mental status, per ED report she is altered baseline but not clear how functional she is Patient withdraws from noxious stimuli in all extremities and meningeal signs were negative Multifactorial including hypotension with dehydration, hypernatremia, hypokalemia, hypoglycemia Serum sodium was 159, potassium was 2.0, glucose was 49 with a calcium of 6.6 Patient was hydrated at the ED, potassium was repleted and she was given dextrose per hypoglycemia protocol Most recent BMP shows sodium of 154, potassium of 3.3, glucose up to 335 with the patient showing minor improvement in responsiveness Patient has a free water deficit of 3.6 L Placed her on half-normal saline at the rate of 125 mL/h Closely monitor serum electrolytes and replete as necessary Accu-Chek with sliding scale Continue treating UTI with ceftriaxone Kept her n.p.o., aspiration precaution, seizure precaution and fall precaution (2) Hypernatremia Is this a current diagnosis for this admission?: Yes Plan: Patient was reportedly given 4 L of normal saline at alf for hypotension and dehydration Per ED physician report the patient had a sodium of 170 at the alf On arrival here, patient had a sodium level of 159 Likely chronic hyponatremia as sodium level on 10/19 was 154 with acute worsening She was hydrated with D5W and 6 hours later her sodium was 154(corrected for hyperglycemia 159) Patient still appears dehydrated with dry oral mucosa Has a free water deficit of 3.6 L Started her on half-normal saline Continue closely monitoring sodium level to avoid overcorrection, target of correction being approximately 12 mEq per 24 hours (3) Hypokalemia Is this a current diagnosis for this admission?: Yes Plan: Potassium was 2.0 on presentation EKG showed sinus rhythm with multiple SVEs Patient was given IV potassium chloride at the ED Most recent potassium level was 3.3 Continue monitoring her on telemetry Closely monitor potassium levels We will check magnesium level and replete as necessary (4) Hypotension Is this a current diagnosis for this admission?: Yes Plan: Patient's blood pressure was ranging in the 80s by 50s on presentation, likely hypovolemic from poor oral intake Improved to low 100s by 60s with a MAP being greater than 65 after initial hydration at the ED Continue closely monitoring vital signs (5) Hypoglycemia Is this a current diagnosis for this admission?: Yes Plan: Blood sugar was 47 on presentation which was corrected with D5W Most recent blood sugar was 370/ Continue Accu-Cheks every 6 hourly (6) UTI (urinary tract infection) Qualifiers: Urinary tract infection type: acute cystitis Hematuria presence: without hematuria Qualified Code(s): N30.00 - Acute cystitis without hematuria Is this a current diagnosis for this admission?: Yes Plan: UA shows multiple WBCs per high-power field and was positive for leukocyte esterase Placed her on ceftriaxone Follow-up with urine culture and sensitivity (7) Schizophrenia Is this a current diagnosis for this admission?: Yes - Time Time Spent with patient: 35 or more minutes Total Critical Time (Minutes): 50 Medications reviewed and adjusted accordingly: Yes Anticipated Discharge Disposition: Half-Way Facility Anticipated Discharge Timeframe: within 72 hours - Inpatient Certification Based on my medical assessment, after consideration of the patient's comorbidities, presenting symptoms, or acuity I expect that the services needed warrant INPATIENT care.: Yes I certify that my determination is in accordance with my understanding of Medicare's requirements for reasonable and necessary INPATIENT services [42 CFR 412.3e].: Yes Medical Necessity: Significant Comorbidiites Make Outpatient Treatment Too Risky, Need Close Monitoring Due to Risk of Patient Decompensation, Need For IV Fluids, Need For Continuous Telemetry Monitoring, Risk of Complication if Not Cared For in Hospital Post Hospital Care: D/C or Transfer Summary
[2020-11-03] MEDS ORDERED: CEFTRIAXONE 1 GM/D5W RTU 1 GM/50 ML RTUPB IV ONE (04:00)
[2020-11-03] MEDS: POTASSI CL 20 MEQ/50 ML RIDER 20 MEQ/50 ML RTUPB IV SCH ×2 (04:25→06:28)
[2020-11-03 06:47] LABS: ABSOLUTE BASOPHILS # (AUTO) 0.1 10^3/uL (0.0-0.2); ABSOLUTE EOSINOPHILS # (AUTO) 0.3 10^3/uL (0.0-0.6); ABSOLUTE MONOCYTES (AUTO) 0.5 10^3/uL (0.1-1.4); ABSOLUTE NEUT (AUTO) 7.4 10^3/uL (1.7-8.2); BASOPHILS % (AUTO) 1.1 % (0-2); EOSINOPHILS % (AUTO) 3.7 % (0-6); HEMATOCRIT 24.4 % (36.0-47.0); HEMOGLOBIN 8.1 g/dL (12.0-15.5); LYMPHOCYTES % (AUTO) 10.5 % (13-45); MEAN CORPUSCULAR HEMOGLOBIN 27.7 pg (27.0-33.4); MEAN CORPUSCULAR HGB CONC 33.4 g/dL (32.0-36.0); MEAN CORPUSCULAR VOLUME 83 fl (80-97); MONOCYTES % (AUTO) 5.5 % (3-13); PLATELET COUNT 156 10^3/uL (150-450); RED BLOOD COUNT 2.94 10^6/uL (3.72-5.28); RED CELL DISTRIBUTION WIDTH 19.4 % (11.5-14.0); SEGMENTED NEUTROPHILS % (AUTO) 79.2 % (42-78); TOTAL CELLS COUNTED % (AUTO) 100 %; WHITE BLOOD COUNT 9.3 10^3/uL (4.0-10.5)
[2020-11-03 07:38] LABS: ALKALINE PHOSPHATASE 89 U/L (38-126); ASPARTATE AMINO TRANSFERASE 26 U/L (14-36); BILIRUBIN,DIRECT 0.4 mg/dL (0.0-0.4); BILIRUBIN,TOTAL 0.4 mg/dL (0.2-1.3); BLOOD UREA NITROGEN 44 mg/dL (7-20); CALCIUM 7.7 mg/dL (8.4-10.2); CARBON DIOXIDE 27 mmol/L (22-30); CHLORIDE 127 mmol/L (98-107); GLUCOSE 217 mg/dL (75-110); POTASSIUM 4.2 mmol/L (3.6-5.0); TOTAL PROTEIN 5.9 g/dL (6.3-8.2)
[2020-11-03 07:42] LABS: ANION GAP 2 (5-19)
[2020-11-03] MEDS ORDERED: DEXTROSE 5%-WATER 1000 ML 1,000 ML IV PRN (08:29)
[2020-11-03] MEDS ORDERED: ENOXAPARIN SODIUM INJ 40 MG/0.4 ML DISP.SYRIN SUBCUT SCH (10:00)
[2020-11-03] MEDS ORDERED: PANTOPRAZOLE SODIUM 40 MG VIAL IV SCH (10:00)
--- NOTE | 2020-11-03 17:04 | ADVANCED CARE ---
Attendance: Mayco Aguirre (brother and medical POA) Vickie Eleazar (daughter) Resuscitation Status: Comfort Measures Only Discussion: Ms. Aguirre is an 84 year old woman with advanced dementia, bed-bound, poor oral intake, severe malnutrition, severe dehydration and multiple electrolyte abnormalities. She has had Covid+ pneumonia since around and has simply not been able to "come through." She is now barely able to open her eyes or communicate. Her hypoalbuminemia has caused severe anasarca after IVF hydration. She has several decub pressure ulcers. She is hypotensive and lethargic. Above concerns discussed with family at length. We reviewed her poor prognosis, as well as her living will and POA paperwork together. She specifically states that she would not want life-prolonging measures if she has advanced dementia. Her daughter and her brother agree that her wishes should be honored. They have chosen to change her code status to DNR/DNI - comfort measures only. They would like for Ms. Aguirre to be discharged back to her SNF with hospice ROB. Time Spent: 75 minutes
[2020-11-03] MEDS: MORPHINE SULFATE 10 MG/ML INJ IV PRN (19:58)
[2020-11-03] MEDS ORDERED: MORPHINE SULFATE 10 MG/ML INJ ONE (19:58)
[2020-11-03] MEDS ORDERED: CEFTRIAXONE 1 GM/D5W RTU 1 GM/50 ML RTUPB IV SCH (22:00)
[2020-11-04 01:30] VITALS: BP 117/52
[2020-11-04] MEDS: MORPHINE SULFATE 10 MG/ML INJ IV PRN (01:53)
[2020-11-04] MEDS ORDERED: FUROSEMIDE INJ/PF 40 MG/4 ML SDV ONE (09:24)
[2020-11-04] MEDS ORDERED: FUROSEMIDE INJ/PF 40 MG/4 ML SDV IV ONE (09:40)
--- NOTE | 2020-11-04 09:45 | PDOC DISCHARGE SUMMARY ---
Impression - Admit/DC Date/PCP Admission Date/Primary Care Provider: 11/03/20 02:27 JOSE PALOMINO MD Discharge Date: 11/04/20 - Assessment Summary: DEMI AGUIRRE is an 84 year old female with PMH of schizophrenia and ad vanced dementia who was presented from [facility] with altered mental status. She is bed-bound, with poor oral intake, severe malnutrition, severe dehydration and multiple electrolyte abnormalities. She has had Covid+ pneumonia since around and has simply not been able to "come through." She is now barely able to open her eyes or communicate. Her hypoalbuminemia has caused severe anasarca after IVF hydration. She has several decubitus pressure ulcers. She remains hypotensive and lethargic. Above concerns discussed with family at length. We reviewed her poor prognosis, as well as her living will and POA paperwork together. She has specifically stated in her living will that she would not want life-prolonging measures if she has advanced dementia. Her daughter and her brother agree that her wishes should be honored. They have chosen to change her code status to DNR/DNI - comfort measures only. They would like for Ms. Aguirre to be discharged back to her LTC with hospice services. For her anasarca, we gave gentle diuretic therapy as the majority of her pain and discomfort are due to the resultant weeping from her skin. She may have pleasure feeds as tolerated. - Additional Information Resuscitation Status: Comfort Measures Only Discharge Diet: Regular Discharge Activity: Bedrest Referrals: JOSE PALOMINO MD [Primary Care Provider] - Follow up as needed Home Medications: Escitalopram Oxalate [Lexapro] 5 mg PO NOON 07/15/18 Risperidone [Risperdal 0.25 mg Tablet] 0.5 mg PO Q12 07/15/18 Clozapine [Clozaril 25 mg Tablet] 25 mg PO DAILY 11/03/20 Dextran 70/Hypromellose [Artificial Tears] 1 each OU BID 11/03/20 Divalproex Sodium [Depakote Sprinkle 125 mg Capsule] 250 mg PO BID 11/03/20 Dronabinol [Marinol 2.5 mg Capsule] 2.5 mg PO BID 11/03/20 Ketoconazole [Nizoral 2% Shampoo 120 ml Bottle] 1 applic TP ASDIR PRN 11/03/20 Levothyroxine Sodium [Levothyroxine] 50 mcg PO QHS 11/03/20 Sennosides/Docusate 8.6-50 mg [Senna Plus Tablet] 1 tab PO BID 11/03/20 History of Present Illiness History of Present Illness: DEMI AGUIRRE is a 84 year old female Physical Exam Vital Signs: Temp Pulse Resp BP Pulse Ox 97.4 F 64 16 117/52 L 100 11/03/20 21:10 11/04/20 00:56 11/04/20 00:56 11/04/20 00:56 11/04/20 00:56 Intake & Output 11/03/20 11/04/20 11/05/20 06:59 06:59 06:59 Intake Total 1200 408 Output Total 325 125 Balance 875 283 Weight 67.585 kg 68.9 kg Results Laboratory Results: WBC 9.3 10^3/uL (4.0-10.5) 11/03/20 06:20 RBC 2.94 10^6/uL (3.72-5.28) L 11/03/20 06:20 Hgb 8.1 g/dL (12.0-15.5) L 11/03/20 06:20 Hct 24.4 % (36.0-47.0) L 11/03/20 06:20 MCV 83 fl (80-97) 11/03/20 06:20 MCH 27.7 pg (27.0-33.4) 11/03/20 06:20 MCHC 33.4 g/dL (32.0-36.0) 11/03/20 06:20 RDW 19.4 % (11.5-14.0) H 11/03/20 06:20 Plt Count 156 10^3/uL (150-450) 11/03/20 06:20 Lymph % (Auto) 10.5 % (13-45) L 11/03/20 06:20 [place] % (Auto) 5.5 % (3-13) 11/03/20 06:20 Eos % (Auto) 3.7 % (0-6) 11/03/20 06:20 Baso % (Auto) 1.1 % (0-2) 11/03/20 06:20 Absolute Neuts (auto) 7.4 10^3/uL (1.7-8.2) 11/03/20 06:20 Absolute Lymphs (auto) 1.0 10^3/uL (0.5-4.7) 11/03/20 06:20 Absolute Monos (auto) 0.5 10^3/uL (0.1-1.4) 11/03/20 06:20 Absolute Eos (auto) 0.3 10^3/uL (0.0-0.6) 11/03/20 06:20 Absolute Basos (auto) 0.1 10^3/uL (0.0-0.2) 11/03/20 06:20 Seg Neutrophils % 79.2 % (42-78) H 11/03/20 06:20 Sodium 155.6 mmol/L (137-145) H 11/03/20 06:20 Potassium 4.2 mmol/L (3.6-5.0) 11/03/20 06:20 Chloride 127 mmol/L (98-107) H 11/03/20 06:20 Carbon Dioxide 27 mmol/L (22-30) 11/03/20 06:20 Anion Gap 2 (5-19) L 11/03/20 06:20 BUN 44 mg/dL (7-20) H 11/03/20 06:20 Creatinine 0.82 mg/dL (0.52-1.25) 11/03/20 06:20 Est GFR ( Amer) > 60 (>60) 11/03/20 06:20 Est GFR (MDRD) Non-Af > 60 (>60) 11/03/20 06:20 Glucose 217 mg/dL (75-110) H 11/03/20 06:20 POC Glucose 125 mg/dL (70-110) H 11/03/20 18:14 Serum Osmolality 339 mOsm/kg (275-301) H 11/02/20 17:45 Lactic Acid 2.0 mmol/L (0.7-2.1) 11/03/20 06:00 Calcium 7.7 mg/dL (8.4-10.2) L 11/03/20 06:20 Phosphorus 2.9 mg/dL (2.5-4.5) 11/02/20 17:45 Magnesium 1.7 mg/dL (1.6-2.3) 11/03/20 06:20 Total Bilirubin 0.4 mg/dL (0.2-1.3) 11/03/20 06:20 Direct Bilirubin 0.4 mg/dL (0.0-0.4) 11/03/20 06:20 Neonat Total Bilirubin Not Reportable 11/03/20 06:20 Neonat Direct Bilirubin Not Reportable 11/03/20 06:20 Neonat Indirect Bili Not Reportable 11/03/20 06:20 AST 26 U/L (14-36) 11/03/20 06:20 ALT 13 U/L (<35) 11/03/20 06:20 Alkaline Phosphatase 89 U/L (38-126) 11/03/20 06:20 Total Protein 5.9 g/dL (6.3-8.2) L 11/03/20 06:20 Albumin 2.0 g/dL (3.5-5.0) L 11/03/20 06:20 TSH 13.40 uIU/mL (0.47-4.68) H 11/03/20 06:20 Free T4 1.08 ng/dL (0.78-2.19) 11/03/20 06:20 Urine Color YELLOW 11/02/20 18:00 Urine Appearance SLIGHTLY-CLOUDY 11/02/20 18:00 Urine pH 5.0 (5.0-9.0) 11/02/20 18:00 Ur Specific [place] 1.018 11/02/20 18:00 Urine Protein 30 mg/dL (NEGATIVE) H 11/02/20 18:00 Urine Glucose (UA) NEGATIVE mg/dL (NEGATIVE) 11/02/20 18:00 Urine Ketones TRACE mg/dL (NEGATIVE) H 11/02/20 18:00 Urine Blood NEGATIVE (NEGATIVE) 11/02/20 18:00 Urine Nitrite NEGATIVE (NEGATIVE) 11/02/20 18:00 Urine Bilirubin NEGATIVE (NEGATIVE) 11/02/20 18:00 Urine Urobilinogen NEGATIVE mg/dL (<2.0) 11/02/20 18:00 Ur Leukocyte Esterase TRACE (NEGATIVE) H 11/02/20 18:00 Urine WBC (Auto) 28 /HPF 11/02/20 18:00 Urine RBC (Auto) 3 /HPF 11/02/20 18:00 U Hyaline Cast (Auto) 2 /LPF 11/02/20 18:00 Squamous Epi Cells Auto <1 /HPF 11/02/20 18:00 Urine Mucus (Auto) MANY /LPF 11/02/20 18:00 Urine Osmolality 603 mOsm/kg (300-900) 11/02/20 18:00 Urine Creatinine 59.1 mg/dL (15-278) 11/02/20 18:00 Urine Sodium 57 mmol/L (30-90) 11/02/20 18:00 Urine Ascorbic Acid NEGATIVE (NEGATIVE) 11/02/20 18:00 Influenza A (RT-PCR) NEGATIVE (NEGATIVE) 11/02/20 20:22 Influenza B (RT-PCR) NEGATIVE (NEGATIVE) 11/02/20 20:22 RSV (RT-PCR) NEGATIVE (NEGATIVE) 11/02/20 20:22 SARS-CoV-2 Rap RNA(RT-PCR) POSITIVE (NEGATIVE) H 11/02/20 20:22 Impressions: Chest X-Ray 11/02/20 00:00 IMPRESSION: New left lung opacities and pleural effusion which could be due to infection. Asymmetric pulmonary edema is possible. Head CT 11/02/20 00:00 IMPRESSION: Diffuse atrophy and mild chronic small vessel ischemic changes. No acute intracranial abnormality on noncontrast CT. EVIDENCE OF ACUTE STROKE: NO. Stroke Is this a Stroke Patient?: No Acute Heart Failure Is this a Heart Failure Patient?: No
== END 2020-11-04 14:40 | DRG 178 ==
LOC: ER 16:05 → EH 11-03 02:27 → 3N 11-03 12:24
PROVIDERS: ADMIT Student in an Organized Health Care Education/Training Program; ATTEND Hospitalist
DX: U07.1 COVID-19 (principal); G93.49 Other encephalopathy; E87.0 Hyperosmolality and hypernatremia; E46 Unspecified protein-calorie malnutrition; N30.00 Acute cystitis without hematuria; E83.51 Hypocalcemia; E86.0 Dehydration; E87.6 Hypokalemia; Z91.012 Allergy to eggs; Z91.018 Allergy to other foods; F31.9 Bipolar disorder, unspecified; F25.9 Schizoaffective disorder, unspecified; I95.9 Hypotension, unspecified; E16.2 Hypoglycemia, unspecified; F03.90 Unspecified dementia, unspecified severity, without behavioral disturbance, psychotic disturbance, mood disturbance, and anxiety; Z51.5 Encounter for palliative care; E88.09 Other disorders of plasma-protein metabolism, not elsewhere classified; L89.90 Pressure ulcer of unspecified site, unspecified stage; Z74.01 Bed confinement status
CPT/HCPCS: 36415; 51702; 70450; 71045; 80048; 81001; 82570; 82962; 83605; 83735; 83930; 83935; 84100; 84300; 84439; 84443; 85025; 87040; 87070; 87077; 87150; 87186; 93005; 93010; 96361; 96365; 96366; 96375; 96376; 99285; 0241U; C9113; C9803; J0610; J0696; J1650; J1940; J2270; J3480; J3490; J7060